=== PATIENT | male | born 1965 | race Two or more races ===

== ENCOUNTER 2020-02-15 02:43 | Emergency (ER) | payer SELFPAY ==
[~2020-02-15] VITALS: Ht 325.1 cm; Wt 75.0 kg
[2020-02-15] MEDS ORDERED: LIDOCAINE HCL/EPINEPHRINE 1%-EPI 1:100,000 30 ML VIAL INFIL ONE (03:45)
[2020-02-15] MEDS ORDERED: TETANUS, DIPHTHERIA, PERTUSSIS VAC/PF 0.5ML (>7YR OLD) IM ONE (03:45)
[2020-02-15] MEDS ORDERED: LIDOCAINE HCL/EPINEPHRINE 1%-EPI 1:100,000 20 ML VIAL INFIL NR (04:15)
[2020-02-15] MEDS ORDERED: BACITRACIN ZINC OINT UDPKT TOP ONE (06:30)
[2020-02-15 06:42] VITALS: BP 116/75
== END 2020-02-15 06:43 | disposition home or self-care (01) ==
LOC: ER 02:43
DX: S01.81XA Laceration without foreign body of other part of head, initial encounter (principal); R41.82 Altered mental status, unspecified; Y04.0XXA Assault by unarmed brawl or fight, initial encounter; Y93.89 Activity, other specified; Y92.89 Other specified places as the place of occurrence of the external cause; Y99.8 Other external cause status
CPT/HCPCS: 12014; 90471; 90715; 99284